=== PATIENT | male | born 1975 | race Caucasian/White ===

== ENCOUNTER → 2020-08-05 | Outpatient (CLI) | payer SELFPAY | LOC: RAD 10:41 | DX: Z02.1 Encounter for pre-employment examination (principal) | CPT/HCPCS: 71046 ==

== ENCOUNTER → 2020-10-13 | Outpatient (CLI) | payer OTHER | LOC: RAD 15:02 | DX: M25.561 Pain in right knee (principal) | CPT/HCPCS: 73562 ==